=== PATIENT | female | born 1990 | race Caucasian/White ===

== ENCOUNTER → 2023-07-24 12:43 | Outpatient (CLI) | payer OTHER, SELFPAY ==
--- NOTE | 2023-07-24 12:44 | DI.RAD.S_ITS ---
PROCEDURE: HL HYSTEROSAPINGOGRAPHY INDICATIONS: Infertility COMPARISON: None. FINDINGS: Patient had a documented negative test prior to the study. Following speculum insertion, a balloon-tip catheter was inserted into the cervical canal, and secured by inflating the balloon. Contrast was then injected into the endometrial canal. Uterus: The uterine cavity appears normal in size and morphology, without synechiae or masses. Fallopian tubes: Both fallopian tubes fill with contrast, and appear normal in caliber and morphology. There is ready dispersion of contrast into the peritoneal cavity. IMPRESSION: Normal hysterosalpingogram. Dictated by: Hollis Ng M.D. on 07/24/2023 at 15:05 Approved by: Hollis Ng M.D. on 07/24/2023 at 15:06
--- NOTE | 2023-07-24 13:31 | PM.PROC.1 ---
Procedures Date/Time Date of procedure: 07/24/23 Time of procedure: 13:31 General Procedure description: Hysterosalpingogram Indications: Patient is a 33-year-old 0 who presents for hysterosalpingogram due to infertility. Informed consent was obtained. The patient was placed on an early returned bedpan on the fluoroscopy table. A bivalve speculum was placed into the vagina. The cervix was cleaned x3 with Betadine. A single-tooth tenaculum was placed on the anterior lip of the cervix. The hysterosalpingogram catheter passed easily into the endometrial cavity. 3 cc of air was injected into the balloon. The bivalve speculum was removed from the vagina. Under direct fluoroscopic examination proximally 12 cc of Isovue-300 were injected. The contours of the uterus were normal in appearance. There was filling of both tubes and spillage from both tubes. The 3 cc of air were removed from the balloon and the HSG catheter was removed from the uterus. The single-tooth tenaculum was removed from the anterior lip of the cervix. The patient tolerated the procedure well. Complications: none
[2023-07-24 14:35] LABS: Free T4, Direct Thyroxine 1.02 ng/dL (0.78-2.19)
[2023-07-24 14:49] LABS: Thyroid Stimulating Hormone 5.37 uIU/mL (0.47-4.68)
[2023-07-25 08:32] LABS: Toxoplasma IgG Interp Negative (.); Toxoplasma gohndii IgG <3.0 IU/mL (0.0-7.1)
[2023-07-25 09:17] LABS: Varicella IgG Antibody 3260 index (Immune >165)
== END ==
PROVIDERS: PCP Student in an Organized Health Care Education/Training Program; Referring Provider Obstetrics & Gynecology; Visit Provider Obstetrics & Gynecology
DX: N97.0 Female infertility associated with anovulation (principal); E03.9 Hypothyroidism, unspecified; Z31.69 Encounter for other general counseling and advice on procreation
CPT/HCPCS: 36415; 58340; 74740; 84439; 84443; 86762; 86777; 86778; 86787

== ENCOUNTER → 2023-08-23 15:58 | Outpatient (CLI) | payer OTHER, SELFPAY ==
[2023-08-23 18:11] LABS: Free T4, Direct Thyroxine 1.11 ng/dL (0.78-2.19)
[2023-08-23 18:25] LABS: Thyroid Stimulating Hormone 1.43 uIU/mL (0.47-4.68)
== END ==
LOC: LAB 16:00
PROVIDERS: PCP Student in an Organized Health Care Education/Training Program; Referring Provider Obstetrics & Gynecology; Visit Provider Obstetrics & Gynecology
DX: E03.9 Hypothyroidism, unspecified (principal)
CPT/HCPCS: 36415; 84439; 84443

== ENCOUNTER → 2024-03-07 12:21 | Outpatient (CLI) | payer OTHER, SELFPAY ==
[2024-03-07 14:39] LABS: Free T4, Direct Thyroxine 1.05 ng/dL (0.78-2.19)
[2024-03-07 14:53] LABS: Thyroid Stimulating Hormone 2.28 uIU/mL (0.47-4.68)
== END ==
PROVIDERS: PCP Student in an Organized Health Care Education/Training Program; Referring Provider Obstetrics & Gynecology; Visit Provider Obstetrics & Gynecology
DX: E03.9 Hypothyroidism, unspecified (principal)
CPT/HCPCS: 36415; 84439; 84443

== ENCOUNTER → 2024-10-04 08:56 | Outpatient (CLI) | payer OTHER, SELFPAY | LOC: LAB 08:57 | PROVIDERS: PCP Student in an Organized Health Care Education/Training Program; Referring Provider Specialist; Visit Provider Specialist | DX: N97.0 Female infertility associated with anovulation (principal) | CPT/HCPCS: 36415; 84144 ==

== ENCOUNTER → 2024-11-06 15:27 | Outpatient (CLI) | payer OTHER, SELFPAY ==
[2024-11-06 16:32] LABS: HCG Quantitative /Beta subunit 476.62 mIU/mL
== END ==
PROVIDERS: PCP Student in an Organized Health Care Education/Training Program; Referring Provider Obstetrics & Gynecology; Visit Provider Obstetrics & Gynecology
DX: N91.2 Amenorrhea, unspecified (principal)
CPT/HCPCS: 36415; 84702

== ENCOUNTER → 2024-11-08 10:26 | Outpatient (CLI) | payer OTHER, SELFPAY ==
[2024-11-08 12:39] LABS: HCG Quantitative /Beta subunit 1160.8 mIU/mL
== END ==
LOC: LAB 10:27
PROVIDERS: PCP Student in an Organized Health Care Education/Training Program; Referring Provider Obstetrics & Gynecology; Visit Provider Obstetrics & Gynecology
DX: O36.80X0 Pregnancy with inconclusive fetal viability, not applicable or unspecified (principal)
CPT/HCPCS: 36415; 84702

== ENCOUNTER → 2024-12-18 15:55 | Outpatient (CLI) | payer OTHER, SELFPAY ==
[2024-12-18 16:35] LABS: Add Manual Diff / Slide Review NO; Hematocrit 37.6 % (36-46); Hemoglobin 12.8 g/dL (12.0-16.0); Lymphocytes Absolute Auto 1700 /uL (1100-4500); Mean Corpuscular HGB Conc 33.9 % (30-36); Mean Corpuscular Hemoglobin 31.0 PG (26-34); Mean Corpuscular Volume 91.4 fL (80-100); Platelet Count 316 X10^3/uL (150-400)
[2024-12-18 16:59] LABS: Natera Collection Specimen Collected
[2024-12-18 17:13] LABS: Free T4, Direct Thyroxine 0.95 ng/dL (0.78-2.19)
[2024-12-18 17:27] LABS: Thyroid Stimulating Hormone 3.24 uIU/mL (0.47-4.68)
[2024-12-18 17:30] LABS: Hepatitis B Surface Antigen NEGATIVE s/c (NEGATIVE)
[2024-12-18 17:45] LABS: HIV 1 & 2 Ab/Ag 4th Gen Combo NEGATIVE (NEGATIVE); Hep C Virus Ab w/Reflex Quant NEGATIVE s/c (NEGATIVE)
== END ==
PROVIDERS: PCP Student in an Organized Health Care Education/Training Program; Referring Provider Obstetrics & Gynecology; Visit Provider Obstetrics & Gynecology
DX: Z34.01 Encounter for supervision of normal first pregnancy, first trimester (principal); E03.9 Hypothyroidism, unspecified; Z3A.10 10 weeks gestation of pregnancy
CPT/HCPCS: 36415; 80055; 84439; 84443; 86787; 86803; 86850; 86900; 86901; 87086; 87389

== ENCOUNTER → 2025-02-27 07:02 | Outpatient (CLI) | payer OTHER, SELFPAY ==
--- NOTE | 2025-02-27 07:03 | DI.US.S_ITS ---
PROCEDURE: US OB >= 14 WEEKS FETUS INDICATIONS: 20 week anatomy OUTSIDE/PRIOR DATING DATA: Last menstrual period (LMP): Unknown Working estimated date of delivery (ENID): 07/13/2025. First dating scan (date and location): 12/10/2024. Estimated date of delivery (ENID) from first dating scan: 07/18/2025. The calculations are made using the working ENID of 07/13/2025. TECHNIQUE: Real-time scanning was performed of the fetus, with image documentation and biometric measurements. Endovaginal scanning: Not performed COMPARISON: None. FINDINGS: General: A single living intrauterine gestation is present. Presentation: Variable. Placenta: Placental position is posterior , without previa. Amniotic fluid index: 17.4 cm, normal range is 5-24 cm. Single deepest vertical pocket is 5.3 cm. heart rate: 155 beats per minute. Maternal cervical canal: 3.9 cm long. Normal lower limit is 2.5 cm. biometrics: Biparietal diameter: 4.8 cm, 20 weeks 4 days Head circumference: 17.8 cm, 20 weeks 2 days Abdominal circumference: 17.1 cm, 22 weeks 0 days Femur length: 3.4 cm, 20 weeks 5 days Clinically estimated gestational age: 20 weeks 4 days Composite gestational age from present scan: 20 weeks 6 days Estimated weight and percentile: 412 g, 80 second percentile Anatomic survey: Neuro: Ventricles are non-dilated at less than 10 mm. Cisterna magna is normal at 3-11 mm. Cerebellum is normal in size and morphology. Nuchal skin fold: Normal at less than 6 mm between 14-21 weeks gestational age. Face: Nose and lips, facial profile are normal. Spine: No evidence for spina bifida. Heart: 4-chambered heart is within normal limits. There is a normal LVOT. RV OT not well evaluated secondary to lie. Diaphragm: Diaphragm is intact. Stomach: Left-sided stomach is present. Kidneys: No hydronephrosis. Normal is less than 5 mm in 2nd trimester, less than 7 mm in 3rd trimester. Cord: 3-vessel cord has orthotopic insertion. Bladder: Normal in size. Extremities: All 4 extremities identified. IMPRESSION: 1. Living 2nd trimester intrauterine with no sonographic evidence of complications. 2. Suboptimal evaluation of RVOT secondary to lie. 3. 2nd trimester anatomy study otherwise within normal limits. Comment: Recommend patient return for limited targeted ultrasound of the RV OT. We strive to produce accurate, complete, and clear reports of imaging services. To assist us in improving patient care, this report was composed using standard report templates and voice recognition software. Therefore, it may contain abnormal punctuation, insertions and/or omissions. Occasional wrong-word or sound-alike substitutions may occur. Though we review the report and make efforts to correct it, we do recommend that the report be read carefully in proper context to recognize any text inaccuracies. Dictated by: Melquiades Yates M.D. on 02/27/2025 at 21:23 Approved by: Melquiades Yates M.D. on 02/27/2025 at 21:30
[2025-02-27 10:55] LABS: TSH w/ Reflex to FT4 0.98 uIU/mL (0.47-4.68)
== END ==
PROVIDERS: Obstetrics & Gynecology; PCP Student in an Organized Health Care Education/Training Program; Referring Provider Obstetrics & Gynecology; Visit Provider Obstetrics & Gynecology
DX: O99.282 Endocrine, nutritional and metabolic diseases complicating pregnancy, second trimester (principal); E03.9 Hypothyroidism, unspecified; Z3A.20 20 weeks gestation of pregnancy
CPT/HCPCS: 36415; 76811; 84443